=== PATIENT | male | born 1970 | race Asian ===

== ENCOUNTER → 2021-06-10 13:00 | Outpatient (CLI) | payer OTHER, SELFPAY ==
--- NOTE | 2021-06-10 | DI.RAD.S_ITS ---
PROCEDURE: XR LUMBAR SPINE 2-3V INDICATIONS: Other chronic pain TECHNIQUE: 3 views of the lumbar spine were acquired. COMPARISON: None. FINDINGS: Bones: 5 [id number] vertebrae are present. There is normal bony alignment. No vertebral body compression fractures. No suspicious bony lesions. Mild to moderate facet arthrosis at L5-S1. Mild predominately anterior endplate osteophytosis. Soft tissues: Overlying bowel gas pattern is normal. No suspicious soft tissue calcifications. IMPRESSION: No acute osseous abnormality. Dictated by: Beck Saez M.D. on 06/10/2021 at 16:11 Approved by: Beck Saez M.D. on 06/10/2021 at 16:12
== END ==
PROVIDERS: PCP Internal Medicine; Referring Provider Internal Medicine; Visit Provider Internal Medicine
DX: M47.817 Spondylosis without myelopathy or radiculopathy, lumbosacral region (principal); M54.50 Low back pain, unspecified; G89.29 Other chronic pain
CPT/HCPCS: 72100

== ENCOUNTER 2022-09-01 08:14 | Day surgery (SDC) | payer OTHER, SELFPAY ==
[2022-09-01 08:28] VITALS: BP 111/71; PULSE 74; RESP 16; TEMP 36.5; O2SAT 99; BMI 21.5
--- NOTE | 2022-09-01 09:24 | PM.HP.1 ---
History of Present Illness History of Present Illness Date Patient Seen: 09/01/22 Chief complaint: Screening Colonoscopy Narrative: Mr. Finley presents today for screening colonoscopy. He is never had a colonoscopy before. Has no family history of colon cancer and no alarming symptoms. Patient History Medical History Encounter for general adult medical examination without abnormal findings Family & Social History Family History (Updated 08/07/22 @ 21:44 by Sonya Salazar) Mother Cancer Social History: household members spouse Tobacco & Substance use: Smoking Status Never smoker alcohol intake never Substance Use Type does not use Meds Home Medications and Allergies Home Medications Medication Instructions Recorded Confirmed Type No Known Home Medications 07/14/22 07/14/22 History Allergies Allergy/AdvReac Type Severity Reaction Status Date / Time No Known Drug Allergies Allergy Verified 09/01/22 08:27 Exam Vital Signs (past 8 hours): - 09/01/22 08:28 Temperature 97.7 F Pulse Rate 74 Respiratory Rate 16 Blood Pressure 111/71 Pulse Oximetry 99 Oxygen Delivery Method Room Air Oxygen Delivery Method Room Air Const General: cooperative, healthy appearing and comfortable HENMT Head: normal to inspection Resp Effort & Inspection: normal respiratory effort and able to speak in complete sentences Cardio Pulses: radial pulses present GI Palpation: soft and No tender Extrem General: normal to inspection Assessment & Plan Assessment & Plan narrative: Mr. Finley presents today for screening colonoscopy. He understands the risks benefits and alternatives. And would like to proceed Time Spent With Patient Critical Care time: I spent a total of [] minutes of critical care time on this patient's care today; this time is exclusive of procedural time.
[2022-09-01 09:59] VITALS: BP 80/48; PULSE 76; RESP 17; TEMP 35.9; O2SAT 98
[2022-09-01 10:00] VITALS: BP 94/63; PULSE 62; RESP 15; O2SAT 99
--- NOTE | 2022-09-01 10:03 | P.OP.COLON_ITS ---
Operative Date/Time/Diagnoses Date of procedure: 09/01/22 Pre-op diagnosis: Colon cancer screening Post-op diagnosis: same Procedure & Clinicians Study performed: Colonoscopy, average risk. Same procedure as scheduled: Yes Surgeon: Arabella Wilkes Procedure Notes Procedure in detail: Patient was taken to the endoscopy suite and placed in a left lateral decubitus position. Time-out was performed. ELIGIBILITY EXAMINER assisted with the induction of conscious sedation. Digital rectal exam was performed there were no strictures or masses. The colonoscope was entered into the anal canal and advanced through to the cecum. Photograph of the appendiceal orifice was obtained. The scope was then withdrawn. The total withdrawal time was 11 minutes. There were no polyps seen and no biopsies taken. The prep was excellent [place] bowel prep score of 3. Follow-up will be in 10 years Specimen(s): none sent Complications: none
[2022-09-01 10:06] VITALS: BP 98/65; PULSE 59; RESP 16; O2SAT 100
[2022-09-01 10:45] VITALS: BP 115/82; PULSE 74; RESP 16; O2SAT 98
== END 2022-09-01 10:30 | disposition home or self-care (01) ==
PROVIDERS: PCP Internal Medicine; Referring Provider Surgery; Visit Provider Surgery
PROC: 0DJD8ZZ Inspection of Lower Intestinal Tract, Via Natural or Artificial Opening Endoscopic (ICD-10-PCS; CPT 45378; principal; 2022-09-01 09:15)
DX: Z12.11 Encounter for screening for malignant neoplasm of colon (principal)
CPT/HCPCS: 45378; J2704

== ENCOUNTER → 2024-03-13 09:02 | Outpatient (CLI) | payer BC, SELFPAY ==
[2024-03-13 10:01] LABS: Hematocrit 41.3 % (41-53); Hemoglobin 14.1 g/dL (13.5-17.5); Mean Corpuscular HGB Conc 34.1 % (30-36); Mean Corpuscular Hemoglobin 31.7 PG (26-34); Mean Corpuscular Volume 92.7 fL (80-100); Platelet Count 253 X10^3/uL (150-400); Red Blood Cell Count 4.46 X10^6/uL (4.5-5.9); Red Cell Distribution Width 13.3 % (11.6-14.8); White Blood Cell Count 6.7 X10^3/uL (4.5-11.0)
[2024-03-13 10:33] LABS: Alanine Aminotransferase 20 IU/L (<50); Albumin 4.2 g/dL (3.5-5.0); Albumin Globulin Ratio 1.6 (1.0-2.8); Alkaline Phosphatase 75 U/L (38-126); Aspartate Aminotransferase 30 IU/L (17-59); BUN Creatinine Ratio 17.6 (6-22); Bilirubin Total 0.6 mg/dL (0.2-1.3); Blood Urea Nitrogen 16 mg/dL (9-20); Calcium 9.2 mg/dL (8.4-10.2); Carbon Dioxide 28 mmol/L (22-32); Chloride 105 mmol/L (98-107); Cholesterol 210 mg/dL (140-199); Estimated Glomerular Filt Rate > 60 mL/min (>60); Globulin 2.6 g/dL (1.7-4.1); Glucose 94 mg/dL (70-100); HDL Cholesterol 83 mg/dL (40-60); HEMOLYSIS < 15 (0-50); LDL Cholesterol Calculated 113 mg/dL (<100); Potassium 4.7 mmol/L (3.4-5.1); Sodium 140 mmol/L (137-145); Total Protein 6.8 g/dL (6.3-8.2); Triglycerides 72 mg/dL (35-150)
[2024-03-13 11:03] LABS: Prostate Specific Antigen Scrn 0.887 ng/mL (0.1-4.0)
[2024-03-13 11:04] LABS: TSH w/ Reflex to FT4 2.42 uIU/mL (0.47-4.68)
--- NOTE | 2024-03-13 11:24 | DI.RAD.S_ITS ---
PROCEDURE: XR LUMBAR SPINE 2-3V INDICATIONS: low back pain TECHNIQUE: 3 views of the lumbar spine were acquired. COMPARISON: [facility], , XR LUMBAR SPINE 2-3V, 06/10/2021, 14:11. FINDINGS: Bones: 5 [id number] vertebrae are present. There is normal bony alignment. No vertebral body compression fractures. No suspicious bony lesions. Mild facet arthropathy at L5-S1. Soft tissues: Overlying bowel gas pattern is normal. No suspicious soft tissue calcifications. IMPRESSION: No acute bony abnormality. No significant change compared to 06/10/2021. Dictated by: David Hutchins M.D. on 03/13/2024 at 17:25 Approved by: David Hutchins M.D. on 03/13/2024 at 17:27
[2024-03-13 15:52] LABS: Appearance Urine UA CLEAR; Bilirubin Urine UA NEGATIVE (NEGATIVE); Color Urine UA YELLOW; Glucose Urine UA NEGATIVE (Negative); Ketones Urine UA NEGATIVE (NEGATIVE); Leukocyte Esterase Urine UA NEGATIVE (NEGATIVE); Nitrite Urine UA NEGATIVE (Negative); Occult Blood Urine UA NEGATIVE (Negative); Protein Urine UA NEGATIVE (Negative); Specific Gravity Urine UA 1.015 (1.000-1.035); Urobilinogen Urine UA 0.2 E.U./dL (0.2)
[2024-03-13 16:04] LABS: Bacteria Urine Occasional (0-1); Culture Indicated Urine Cult Not Indicated; RBC Urine 0-1/HPF (0-5/HPF); Squamous Epithelial Cell Urine 0-1 /HPF (0-5/HPF); Urine Volume 10mL (spun); WBC Urine 0-1/HPF (0-5/HPF)
== END ==
LOC: LAB 09:19 → RAD 11:24
PROVIDERS: PCP Internal Medicine; Referring Provider Internal Medicine; Visit Provider Internal Medicine
DX: Z00.00 Encounter for general adult medical examination without abnormal findings (principal); Z12.5 Encounter for screening for malignant neoplasm of prostate; M47.816 Spondylosis without myelopathy or radiculopathy, lumbar region; R35.1 Nocturia; G89.29 Other chronic pain; M54.50 Low back pain, unspecified
CPT/HCPCS: 36415; 72100; 80053; 80061; 81001; 84443; 85027; G0103